=== PATIENT | male | born 1985 | race African-American/Black ===

== ENCOUNTER 2024-09-12 20:46 | Emergency (ER) | payer OTHER ==
[~2024-09-12] VITALS: Ht 175.3 cm; Wt 70.8 kg
[2024-09-12 22:10] VITALS: RESP 18; TEMP 99
[2024-09-12 23:01] LABS: BASOPHILS % 0.3 % (0.0-1.0); EOSINOPHILS # (AUTO) 0.1 (0.0-0.4); EOSINOPHILS % 1.7 % (0.0-6.0); HEMATOCRIT 42.4 % (38.2-49.6); HEMOGLOBIN 14.7 g/dL (14.0-18.0); LYMPHOCYTES # (AUTO) 2.1 (1.0-3.2); LYMPHOCYTES % 31.7 % (18.0-39.1); MEAN CORPUSCULAR HEMOGLOBIN 23.6 pg (28-32); MEAN CORPUSCULAR HGB CONC 34.7 g/dL (31-35); MEAN CORPUSCULAR VOLUME 67.9 fL (81-99); MONOCYTES # (AUTO) 0.7 (0.2-0.8); MONOCYTES % 11.1 % (4.4-11.3); NEUTROPHILS # (AUTO) 3.6 (2.1-6.9); NEUTROPHILS % 54.9 % (38.7-80.0); PLATELET COUNT 274 x10e3/uL (140-360); RED BLOOD COUNT 6.24 x10e6/uL (4.3-5.7); RED CELL DISTRIBUTION WIDTH 15.2 % (11.7-14.4)
[2024-09-12 23:22] LABS: ALBUMIN 4.8 g/dL (3.5-5.0); ALBUMIN/GLOBULIN RATIO 1.2 (0.8-2.0); ANION GAP 15.7 mmol/L (8-16); CALCIUM 9.4 mg/dL (8.4-10.2); CREATININE, SERUM 1.32 mg/dL (0.72-1.25); POTASSIUM 3.7 mmol/L (3.5-5.1); TOTAL PROTEIN 8.9 g/dL (6.5-8.1)
[2024-09-13] MEDS ORDERED: IOPAMIDOL 370 MG/ML 100 ML INFUS..BTL INJ ONE (00:16)
[2024-09-13] MEDS ORDERED: DIAZEPAM INJ 5 MG/ML 2 ML IV STA (00:38)
[2024-09-13 01:35] VITALS: PULSE 86
[2024-09-13 01:50] VITALS: BP 151/100; PULSE 87; RESP 20; O2SAT 100
== END 2024-09-13 01:51 | disposition home or self-care (01) ==
LOC: ER 20:56
DX: R10.33 Periumbilical pain (principal); R53.1 Weakness; I10 Essential (primary) hypertension; B20 Human immunodeficiency virus [HIV] disease
CPT/HCPCS: 36415; 74177; 80053; 83690; 85025; 99284; Q9967